=== PATIENT | female | born 1995 | race African-American/Black ===

== ENCOUNTER 2018-02-11 15:26 | Inpatient (IN) ==
[2018-02-11] MEDS ORDERED: LACTATED RINGERS 1,000 ML IV SCH (16:30)
[2018-02-11] MEDS ORDERED: miSOPROStol 200 MCG TABLET VAG ONE (16:30)
[2018-02-11 16:31] LABS: Basophils % 0.5 % (0.0-0.8); Eosinophils # 0.1 10*3/uL (0.0-0.87); Eosinophils % 1.8 % (0.00-10.9); Hematocrit 34.7 VOL% (35.7-47.0); Hemoglobin 11.8 GM/DL (12.0-16.0); Immature Granulocytes % 0.3 %; Immature Granulocytes Absolute 0.02 #; Lymphocytes # 1.9 10*3/uL (1.4-4.0); Lymphocytes % 28.6 % (21.3-54.2); Mean Corpuscular Hemoglobin 28 PG (27-34); Mean Corpuscular Volume 80.9 FL (87-102); Mean Platelet Volume 11.7 FL (9.6-12.0); Monocytes # 0.6 10*3/uL (0.11-0.8); Monocytes % 9.4 % (1.7-12.7); Neutrophils # 3.9 10*3/uL (1.4-7.4); Neutrophils % 59.4 % (38.7-73.9); Platelet Count 195 T/CUMM (130-400); Red Blood Count 4.29 MC/CUMM (3.8-5.5); Red Cell Distribution Width 12.8 % (9.3-17.3); White Blood Count 6.5 T/CUMM (4-12)
[2018-02-11] MEDS ORDERED: ZALEPLON 5 MG CAPSULE PO PRN (18:13)
[2018-02-11] MEDS: BUTORPHANOL 2 MG/ML VIAL IV PRN ×2 (18:53→22:00)
[2018-02-11] MEDS: ONDANSETRON 4 MG/2 ML VIAL IV PRN ×2 (18:53→22:00)
[2018-02-11] MEDS ORDERED: OXYTOCIN/LR 20 UNIT/1,000 ML BAG IV ONE ×2 (19:14→23:00)
[2018-02-11] MEDS: miSOPROStol 200 MCG TABLET VAG SCH (19:31)
[2018-02-11] MEDS ORDERED: ACETAMINOPHEN 500 MG TABLET PO PRN (21:59)
[2018-02-11] MEDS ORDERED: IBUPROFEN 600 MG TABLET PO PRN (23:00)
[2018-02-11] MEDS ORDERED: BISACODYL 10 MG SUPP RECTAL PRN (23:00)
[2018-02-11] MEDS ORDERED: DIPH/TET/ACEL PERT BOOSTER VACCINE 0.5 ML VIAL IM ONE (23:00)
[2018-02-12] MEDS: miSOPROStol 200 MCG TABLET VAG SCH (01:05)
[2018-02-12 06:58] LABS: Basophils % 0.2 % (0.0-0.8); Eosinophils # 0.1 10*3/uL (0.0-0.87); Eosinophils % 0.4 % (0.00-10.9); Hemoglobin 10.5 GM/DL (12.0-16.0); Immature Granulocytes % 0.3 %; Immature Granulocytes Absolute 0.03 #; Lymphocytes # 2.1 10*3/uL (1.4-4.0); Lymphocytes % 17.9 % (21.3-54.2); Mean Corpuscular HGB Conc 33.9 GM/DL (32-36); Mean Corpuscular Hemoglobin 27 PG (27-34); Mean Corpuscular Volume 80.3 FL (87-102); Mean Platelet Volume 11.7 FL (9.6-12.0); Monocytes # 1.2 10*3/uL (0.11-0.8); Neutrophils # 8.3 10*3/uL (1.4-7.4); Neutrophils % 71.2 % (38.7-73.9); Platelet Count 176 T/CUMM (130-400); Red Blood Count 3.86 MC/CUMM (3.8-5.5); Red Cell Distribution Width 12.6 % (9.3-17.3); White Blood Count 11.7 T/CUMM (4-12)
[2018-02-12 07:37] VITALS: BP 105/62
== END 2018-02-12 13:15 | disposition home or self-care (01) | DRG 560 ==
LOC: N.LDOUT 15:26 → N.LD 15:29 → N.OB 16:07
PROVIDERS: ADMIT Obstetrics & Gynecology; ATTEND Obstetrics & Gynecology